=== PATIENT | female | born 1980 | race Caucasian/White ===

== ENCOUNTER 2020-02-17 21:21 | Emergency (ER) | payer OTHER ==
--- NOTE | 2020-02-17 22:44 | EDM.PDOC ---
ED HPI GENERAL MEDICAL PROBLEM - General Chief Complaint: Chest Pain Stated Complaint: HEART RACING/CHEST TIGHTNESS/PAIN IN LEFT SHOULDER Time Seen by Provider: 02/17/20 22:26 Source of Information: Reports: Patient History Limitations: Reports: No Limitations - History of Present Illness INITIAL COMMENTS - FREE TEXT/NARRATIVE: Mrs. Light is a very pleasant 39-year-old woman who states that she developed sudden-onset chest tightness that radiated up the left side of her neck and down the entire length of her left upper extremity, with tingling of both of her hands, worse on the left than the right, nausea, dyspnea, slight diaphoresis, and anxiety, around 20:45 tonight, while sitting in her living room. She states that initially the chest tightness was severe, up pain, however, it has since improved, and is now just a discomfort. The patient did not take any [id number] or home remedies prior to coming to the ED. Patient states that she has a history of untreated anxiety and panic attacks, but states that her current symptoms are different than previously. Here in the ED, the patient's initial BP is found to be mildly elevated at 148/96, otherwise, she is hemodynamically stable, afebrile, saturating 100% on room air. Other than tonight's symptoms, the patient denies recent fever, chills, sore throat, ear pain, nasal or sinus congestion, cough, dyspnea, chest pain, palpitations, nausea, vomiting, constipation, diarrhea, abdominal pain, urinary symptoms, recent weight gain or weight loss, recent bloody bowel movements or black bowel movements, recent joint aches, headaches, or rashes. The patient's PCP is Dr. Blanche Bernstein. Chest Pain Score (Numeric/FACES): 6 - Related Data Allergies Allergy/AdvReac Type Severity Reaction Status Date / Time aspirin Allergy Severe Anaphylactic Verified 02/17/20 21:31 Shock Home Meds: Home Meds . [No Known Home Meds] 02/17/20 [History] Past Medical History HEENT History: Reports: Allergic Rhinitis (untreated) Respiratory History: Reports: Asthma (PFT-negative) Psychiatric History: Reports: Anxiety (untreated) Endocrine/Metabolic History: Reports: Obesity/BMI 30+ - Past Surgical History HEENT Surgical History: Reports: Myringotomy w Tube(s) (bilateral), Other (See Below) (Left mastoid processs I&D) Social & Family History - Tobacco Use Smoking Status *Q: Current Every Day Smoker Years of Tobacco use: 26 Packs/Tins Daily: 0.5 Packs/Tins Daily Comment: Down from 1 ppd - Caffeine Use Caffeine Use: Reports: Soda - Alcohol Use Alcohol Use History: No - Recreational Drug Use Recreational Drug Use: Yes Drug Use in Last 12 Months: No Recreational Drug Type: Reports: Marijuana/Hashish (last smoked when 20 yrs old. Took CBD December 2019) - Living Situation & Occupation Living situation: Reports: , with Spouse, with Family (2 sons) Occupation: Employed (teacher ballet) ED ROS GENERAL - Review of Systems Review Of Systems: Comprehensive ROS is negative, except as noted in HPI. ED EXAM, GENERAL - Physical Exam Exam: See Below Exam Limited By: No Limitations General Appearance: Alert, WD/WN, Anxious Eye Exam: Bilateral Eye: EOMI, Normal Inspection Ears: Normal External Exam, Hearing Grossly Normal Nose: Normal Inspection Throat/Mouth: Normal Inspection, Normal Lips, Normal Voice, No Airway Compromise Head: Atraumatic, Normocephalic Neck: Normal Inspection, Full Range of Motion Respiratory/Chest: No Respiratory Distress, Lungs Clear, Normal Breath Sounds, No Accessory Muscle Use. No: Decreased Breath Sounds, Crackles, Rhonchi, Wheezing, Stridor, Prolonged Expiration Cardiovascular: Normal Peripheral Pulses, Regular Rate, Rhythm, No Gallop, No JVD, No Murmur, No Rub Peripheral Pulses: 3+: Radial (L), Radial (R) GI/Abdominal: Normal Bowel Sounds, Soft, Non-Tender, No Organomegaly, No Distention, No Abnormal Bruit, No Mass (Female) Exam: Deferred Rectal (Female) Exam: Deferred Back Exam: Normal Inspection, Full Range of Motion, NT Extremities: Normal Inspection, Normal Range of Motion, No Pedal Edema, Normal Capillary Refill Neurological: Alert, Oriented, Normal Cognition, No Motor/Sensory Deficits Psychiatric: Normal Affect Skin Exam: Warm, Dry, Intact, Normal Color, No Rash EKG INTERPRETATION EKG Date: 02/17/20 Time: 21:38 Rhythm: NSR Rate (Beats/Min): 87 [place]: Normal P-Wave: Present QRS: Normal ST-T: Normal QT: Normal Comparison: NA - No Prior EKG Course - Vital Signs Last Recorded V/S: Last Vital Signs Temp 36.9 C 02/17/20 21:28 Pulse 80 02/17/20 23:46 Resp 16 02/17/20 23:46 BP 136/88 02/17/20 23:46 Pulse Ox 99 02/17/20 23:46 - Orders/Labs/Meds Orders: Active Orders 24 hr Category Date Time Status EKG 12 Lead [EKG Documentation Completion] [RC] STAT Care 02/17/20 21:34 Active CXR [Chest 1V Frontal] [CR] Stat Exams 02/17/20 21:52 Taken Labs: Laboratory Tests 02/17/20 02/17/20 02/17/20 Range/Units 22:40 22:40 22:40 WBC 14.35 H (3.98-10.04) K/mm3 RBC 4.83 (3.98-5.22) M/mm3 Hgb 14.9 (11.2-15.7) gm/dl Hct 45.4 H (34.1-44.9) % MCV 94.0 (79.4-94.8) fl MCH 30.8 (25.6-32.2) pg MCHC 32.8 (32.2-35.5) g/dl RDW Std Deviation 46.8 H (36.4-46.3) fL Plt Count 397 H (182-369) K/mm3 MPV 8.7 L (9.4-12.3) fl Neutrophils % (Manual) 81 H (40-60) % Band Neutrophils % 1 (0-10) % Lymphocytes % (Manual) 14 L (20-40) % Atypical Lymphs % 0 % Monocytes % (Manual) 3 (2-10) % Eosinophils % (Manual) 1 (0.7-5.8) % Basophils % (Manual) 0 L (0.1-1.2) Platelet Estimate Adequate RBC Morph Comment Normal D-Dimer, Quantitative 0.32 (0.19-0.50) mg/L Sodium 137 (136-145) mEq/L Potassium 4.0 (3.5-5.1) mEq/L Chloride 102 (98-107) mEq/L Carbon Dioxide 25 (21-32) mEq/L Anion Gap 14.0 (5-15) BUN 7 (7-18) mg/dL Creatinine 0.7 (0.55-1.02) mg/dL Est Cr Clr Drug Dosing 108.85 mL/min Estimated GFR (MDRD) > 60 (>60) mL/min BUN/Creatinine Ratio 10.0 L (14-18) Glucose 119 H (74-106) mg/dL Calcium 9.0 (8.5-10.1) mg/dL Total Bilirubin 0.2 (0.2-1.0) mg/dL AST 20 (15-37) U/L ALT 26 (14-59) U/L Alkaline Phosphatase 67 (46-116) U/L Troponin I < 0.017 (0.00-0.056) ng/mL Total Protein 8.0 (6.4-8.2) g/dl Albumin 3.8 (3.4-5.0) g/dl Globulin 4.2 gm/dL Albumin/Globulin Ratio 0.9 L (1-2) - Re-Assessments/Exams Free Text/Narrative Re-Assessment/Exam: 02/17/20 22:41 As above, the patient developed sudden onset chest tightness, a pain, around 20:45, associated with left upper extremity pain and bilateral hand tingling, worse on the left than the right, nausea, dyspnea, and slight diaphoresis, associated with anxiety. She states that her symptoms have improved somewhat since they initially began. It is noted that her oxygen saturation is 100% on room air, although the patient states that her current symptoms are not the same as prior panic attacks. Her ECG, obtained at triage, is unremarkable. The triage nurse ordered a work-up that includes blood work and a portable chest x- ray, which are all still pending. 02/17/20 23:24 Portable chest radiograph appears to be grossly normal. The cardiac silhouette is within normal limits. No pulmonary vascular congestion. No pleural effusions seen on this AP view. No focal infiltrate. No pneumothorax. There is hyperventilation and bilateral diaphragmatic flattening, consistent with COPD. Formal read per the Radiologist pending. The patient's CBC is remarkable for WBC count elevated at 14.35, but with only 1% bandemia. Her Hct is mildly elevated at 45.4, but with a Hgb normal at 14.9. Her platelets are mildly elevated at 397,000, with the remainder of her CBC being normal. Her CMP is remarkable for a blood glucose slightly elevated at 119, with remainder of her CMP being unremarkable. Her troponin is undetectably low. Her D-dimer is within normal limits at 0.32. 02/17/20 23:29 Test results discussed with the patient. As above, today's work-up is unremarkable. The patient believes that she was likely suffering from a panic attack, and while I cannot specifically test for anxiety, I am inclined to agree with her. I will discharge her home. Departure - Departure Time of Disposition: 23:29 Disposition: Home, Self-Care 01 Condition: Good Clinical Impression: Panic attack - Discharge Information *PRESCRIPTION DRUG MONITORING PROGRAM REVIEWED*: Not Applicable *COPY OF PRESCRIPTION DRUG MONITORING REPORT IN PATIENT MARIA: Not Applicable Referrals: Blanche Bernstein MD [Primary Care Provider] - Forms: ED Department Discharge Additional Instructions: You were seen in the emergency room after developing sudden onset upper chest tightness with pain radiating down your left upper extremity, tingling and numbness to both of your hands, nausea, shortness of breath, and mild sweatiness. Work-up in the ER included blood work, a chest x-ray, and an ECG. Your entire work-up was unremarkable. You have not suffered a heart attack. You do not have a blood clot in your lungs. You do not have pneumonia or a collapsed lung. Based on your history, physical exam, and ER tests, your symptoms are most likely due to a panic attack. If your symptoms persist or recur often, we recommend that you follow-up with your PCP, Dr. Blanche Bernstein, to discuss treatment options for anxiety. If any other problems, please do not hesitate to return to the ER. Sepsis Event Note (ED) - Evaluation Sepsis Screening Result: No Definite Risk - Focused Exam Vital Signs: Vital Signs Temp Pulse Resp BP Pulse Ox 02/17/20 23:46 80 16 136/88 99 02/17/20 21:28 36.9 C 89 20 148/96 H 100 - My Orders Last 24 Hours: My Active Orders 02/17/20 21:34 EKG 12 Lead [EKG Documentation Completion] [RC] STAT 02/17/20 21:52 CXR [Chest 1V Frontal] [CR] Stat - Assessment/Plan Last 24 Hours: My Active Orders 02/17/20 21:34 EKG 12 Lead [EKG Documentation Completion] [RC] STAT 02/17/20 21:52 CXR [Chest 1V Frontal] [CR] Stat
--- NOTE | 2020-02-19 13:59 | CR ---
Chest: Portable view of the chest was obtained. Comparison: No prior chest x-ray is available. Heart size and mediastinum are normal. Lungs are clear with no acute parenchymal change. Bony structures are grossly intact. Impression: 1. Nothing acute is appreciated on portable chest x-ray. Diagnostic code #1 This report was dictated in MDT
== END 2020-02-17 23:45 | disposition home or self-care (01) ==
LOC: JD.ED 21:21
DX: F41.0 Panic disorder [episodic paroxysmal anxiety] (principal); J45.909 Unspecified asthma, uncomplicated; E66.9 Obesity, unspecified; F17.210 Nicotine dependence, cigarettes, uncomplicated; Z68.35 Body mass index [BMI] 35.0-35.9, adult; Z88.6 Allergy status to analgesic agent
CPT/HCPCS: 36415; 71045; 71045-26; 80053; 84484; 85007; 85027; 85379; 93005; 93010; 99283; 99285-25